=== PATIENT | female | born 1945 | race Caucasian/White ===

== ENCOUNTER 2025-04-01 14:38 | Outpatient (CLI) | payer MEDICARE, OTHER, SELFPAY ==
--- NOTE | 2025-04-01 14:15 | DI.RAD_ITS ---
Exam(s) XR KNEE RT 3V AP,LAT,YOKO EXAM: XR KNEE RT 3V AP,LAT,YOKO CLINICAL HISTORY: RIGHT KNEE PAIN. TECHNIQUE: 2D digital imaging was performed. Three views. COMPARISON: DX MO KNEE RIGHT 3V from 09/05/2019 FINDINGS: BONES: No acute fracture is present. No bony destructive lesion is seen. Is stable alignment of the total knee prosthesis. JOINTS: The knee is normally aligned. No joint effusion is seen. SOFT TISSUE: Normal. IMPRESSION: Stable appearance of the total knee prosthesis. DATA REPOSITORY: RADIATION DOSE DELIVERED:
--- NOTE | 2025-04-01 14:30 | DI.RAD_ITS ---
Exam(s) XR KNEE LT 4V AP,LAT,YOKO,PAT EXAM: XR KNEE LT 4V AP,LAT,YOOK,PAT CLINICAL HISTORY: LEFT KNEE PAIN. TECHNIQUE: 2D digital imaging was performed. Four views. COMPARISON: CR XR KNEE RT 3V AP,LAT,YOKO from 04/01/2025 FINDINGS: BONES: No acute fracture is present. Old proximal fibular fracture. No bony destructive lesion is seen. JOINTS: There is severe narrowing of the medial femoral tibial joint space, with a [id number] appearance. There is prominent spurring from the femoral condyles and tibial plateaus. There is mild varus angulation. There is moderate to severe narrowing of the lateral patellofemoral joint with periar ticular spurring. No joint effusion is seen. SOFT TISSUE: Normal. 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 DATA REPOSITORY: RADIATION DOSE DELIVERED:
--- NOTE | 2025-04-01 15:00 | DI.RAD_ITS ---
Exam(s) XR HIP RT COMPLETE AP PELVIS EXAM: XR HIP RT COMPLETE AP PELVIS CLINICAL HISTORY: eval R hip/leg pain. TECHNIQUE: 2D digital imaging was performed. Two views COMPARISON: No exams were available for comparison FINDINGS: BONES: No acute fracture is present. No bony destructive lesion is seen. There is a large subchondral cyst at the superior femoral head with mild subchondral collapse. There is mild narrowing of the left hip joint space medially. JOINTS: No dislocation present. There is severe narrowing of the right hip joint space medially. There is prominent spurring at the femoral head and moderate spurring at the margin of the acetabulum. SOFT TISSUE: Normal. 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 DATA REPOSITORY: RADIATION DOSE DELIVERED:
== END 2025-04-01 14:39 | disposition home or self-care (01) ==
PROVIDERS: PCP Family Medicine; Referring Provider Family Medicine; Visit Provider Student in an Organized Health Care Education/Training Program
DX: M25.562 Pain in left knee (principal); M76.31 Iliotibial band syndrome, right leg; M25.551 Pain in right hip; Z96.651 Presence of right artificial knee joint
CPT/HCPCS: 99215; 73562; 73502; 73564

== ENCOUNTER → 2025-04-12 08:50 | Outpatient (BNVA) | payer MEDICARE, OTHER, SELFPAY | PROVIDERS: PCP Family Medicine; Referring Provider Family Medicine; Visit Provider Physician Assistant | DX: M16.11 Unilateral primary osteoarthritis, right hip (principal); M25.561 Pain in right knee | CPT/HCPCS: 20611; J1010 ==